=== PATIENT | female | born 1985 | race Caucasian/White ===

== ENCOUNTER → 2022-02-07 | Outpatient (CLI) | payer BC, SELFPAY ==
[2022-02-10 20:10] LABS: HPV APTIMA, High Risk Negative (Negative)
== END | disposition home or self-care (01) ==
LOC: LABSPEC 16:23
PROVIDERS: Visit Provider Obstetrics & Gynecology
DX: Z12.4 Encounter for screening for malignant neoplasm of cervix (principal)
CPT/HCPCS: 87624; 88175; G0145

== ENCOUNTER 2022-03-02 14:28 | Outpatient (CLI) | payer BC, SELFPAY ==
--- NOTE | 2022-03-02 | LES_PTH ---
PATIENT: NANETTE DELUNA LOC: [facility] U#:[id number] AGE/SX: 36/F ROOM: RE03/02/[address]: Dr. Suman Allison MD : 1985 BED: DIS: 03/02/2022 SPEC #: [id number] RECD: 03/02/22 15:57 STATUS: MACK ALMODOVARChely #: [id number] RUTH ANN: 03/02/22 00:[address]: Suman Allison DEPT: SURGICAL PATHOLOGY RECD BY: Daryn Garnica Tissues: Skin appendage, NOS Procedures: Surgery Specimen Level III HEADER OPERATION: Skin tag removal PRE-OP DIAGNOSIS: 078.11 TISSUE SUBMITTED: Skin tag MICROSCOPIC DIAGNOSIS Skin tag, biopsy: Benign fibroepithelial polyp. AM:kirby 03/06/2022 MICROSCOPIC DESCRIPTION Slides are reviewed. GROSS DESCRIPTION Received in fixative is one container labeled with the patient's name and designated skin tag. The specimen consists of a polypoid piece of dangelo-white skin measuring 0.5 x 0.5 x 0.3 cm. The specimen is bisected and submitted entirely in one cassette. / SJ:rg 03/03/2022 TC:1 CPT: 09324
== END 2022-03-02 23:59 | disposition home or self-care (01) ==
LOC: LABSPEC 14:29
PROVIDERS: Visit Provider Obstetrics & Gynecology
DX: L91.8 Other hypertrophic disorders of the skin (principal)
CPT/HCPCS: 88304; 88305

== ENCOUNTER → 2023-02-23 | Outpatient (CLI) | payer OTHER, SELFPAY ==
[2023-02-23 15:42] LABS: Absolute Lymphocyte Count 4.23 X10^3/uL (0.83-4.51); Absolute Neutrophil Count 6.9 X10^3/uL (2.0-7.7); Basophil# 0.07 X10^3/uL; Basophil% 0.6 % (0-1); Eosinophil# 0.63 X10^3/uL; Eosinophils% 5.1 % (0-5); Hematocrit 27.4 % (37-47); Hemoglobin 9.1 g/dL (12.0-15.0); Lymphocyte # 4.23 X10^3/ul (0.83-4.51); Mean Corp Hgb Conc 33.2 g/dL (32-36); Mean Corpuscular Hgb 33.2 pg (27.0-32.0); Mean Platelet Vol. 10.7 fl (6.2-12.0); Monocyte# 0.59 X10^3/uL; Monocyte% 4.7 % (0-10); NRBC Flagged by Analyzer 0 % (0-5); Neutrophil # 6.86 X10^3/uL (2.7-7.7); Neutrophil % 55.1 % (47-70); Platelet Count 299 K/mm3 (150-450); RBC Distribution Width CV 13.1 % (11.6-14.6); RBC Distribution Width SD 47.6 fl (35.1-43.9); Red Blood Count 2.74 M/mm3 (4.2-5.4); White Blood Count 12.4 K/mm3 (4.4-11.0)
[2023-02-23 16:06] LABS: Hemoglobin A1c 7.7 % (3.8-5.6)
[2023-02-23 16:09] LABS: hCG Titer Quant., Serum < 1 mIU/mL (1-3)
[2023-02-23 16:10] LABS: Estradiol 27.2 pg/mL; Prolactin 23.3 ng/mL; T4 Free Direct 1.05 ng/dL (0.76-1.46); Thyroid Stim Hormone (TSH) 1.43 uIU/mL (0.358-3.74)
== END | disposition home or self-care (01) ==
LOC: WOBLAB 14:51
PROVIDERS: Visit Provider Nurse Practitioner Women's Health
DX: N93.9 Abnormal uterine and vaginal bleeding, unspecified (principal)
CPT/HCPCS: 36415; 82670; 83001; 83002; 83036; 84146; 84439; 84443; 84702; 85025

== ENCOUNTER → 2023-03-07 | Outpatient (CLI) | payer OTHER, SELFPAY ==
--- NOTE | 2023-03-07 | EMB_PTH ---
PATIENT: NANETTE DELUNA LOC: [facility] U#:[id number] AGE/SX: 37/F ROOM: RE03/07/[address]: Dr. Leta Allison, : 1985 BED: DIS: 03/07/2023 SPEC #: [id number] RECD: 03/07/23 16:39 STATUS: MACK ESVIN #: [id number] RUTH ANN: 03/07/23 00:[address]: Leta Allison DEPT: SURGICAL PATHOLOGY RECD BY: Daryn Garnica Tissues: Endometrium, NOS Procedures: Surgery Specimen Level IV HEADER OPERATION: Endometrial biopsy PRE-OP DIAGNOSIS: N93.9 TISSUE SUBMITTED: Endometrial biopsy MICROSCOPIC DIAGNOSIS Endometrial biopsy: Secretory endometrium. JANICE:kirby 03/09/2023 MICROSCOPIC DESCRIPTION Slides are reviewed. GROSS DESCRIPTION Received in fixative is one container labeled with the patient's name and designated endometrial biopsy. The specimen consists of multiple irregular fragments of dangelo-pink soft tissue that in aggregate measure 2.0 x 0.5 x 0.1 cm. The specimen is totally submitted in one cassette. / SJ:rg 03/08/2023 TC:4 CPT: 94468
== END | disposition home or self-care (01) ==
LOC: LABSPEC 16:28
PROVIDERS: Visit Provider Student in an Organized Health Care Education/Training Program
DX: N93.9 Abnormal uterine and vaginal bleeding, unspecified (principal)
CPT/HCPCS: 88305

== ENCOUNTER 2023-04-12 07:09 | Day surgery (SDC) | payer OTHER, SELFPAY ==
[2023-04-04 17:07] LABS: Hematocrit 35.5 % (37-47); Hemoglobin 11.1 g/dL (12.0-15.0); Mean Corp Hgb Conc 31.3 g/dL (32-36); Mean Corpuscular Hgb 29.8 pg (27.0-32.0); Mean Corpuscular Volume 95.2 fL (81-99); Mean Platelet Vol. 10.4 fl (6.2-12.0); Platelet Count 470 K/mm3 (150-450); RBC Distribution Width SD 49.3 fl (35.1-43.9); Red Blood Count 3.73 M/mm3 (4.2-5.4); White Blood Count 12.8 K/mm3 (4.4-11.0)
[2023-04-04 17:25] LABS: Hemoglobin A1c 6.7 % (3.8-5.6)
[2023-04-04 17:30] LABS: ALB/GLOB Ratio 1.1 RATIO (0.9-2.4); AST(SGOT) 25 U/L (15-37); Alanine Aminotransfer ALT/SGPT 62 U/L (13-56); Albumin, Serum 3.9 g/dL (3.2-5.0); Alkaline Phosphatase 44 U/L (45-117); Anion Gap 5 (5-15); BUN 12 mg/dL (7-18); BUN/Creat Ratio 14.3 RATIO (10-20); Calcium,Total 9.2 mg/dL (8.5-10.1); Chloride 108 mmol/L (98-107); Creatinine, Serum 0.84 mg/dL (0.55-1.02); EST Glomerular Filtration Rate 80 mL/min (>60); Est Glom Filt Rate - Afr Amer 97 mL/min (>60); Globulin 3.7 g/dL (2.2-4.2); Glucose 106 mg/dL (74-106); Potassium 3.8 mmol/L (3.5-5.1); Protein, Total 7.6 g/dL (6.4-8.2); Sodium Level 137 mmol/L (136-145)
--- NOTE | 2023-04-09 07:02 | EKG12_ITS ---
Test Reason : PRE OP Blood Pressure : / mmHG Vent. Rate : 069 BPM Atrial Rate : 069 BPM P-R Int : 132 ms QRS Dur : 100 ms QT Int : 386 ms P-R-T Axes : 007 -02 104 degrees QTc Int : 413 ms Normal sinus rhythm with sinus arrhythmia Abnormal QRS-T angle, consider primary T wave abnormality Abnormal ECG No previous ECGs available Confirmed by AUDREY CASTORENA, COLLEEN ([id number]), index editor STACY MANN ([id number]) on 04/09/2023 1:26:07 PM Referred By: Leta Allison Confirmed By:COLLEEN VENTURA MD
[2023-04-12] VITALS (7 sets, daily range): BP systolic 123–154; BP diastolic 70–99; PULSE 57–75; RESP 18; TEMP 36.7–36.8; O2SAT 94–100; BMI 20.7
--- NOTE | 2023-04-12 07:17 | HP.PCM.OB_ITS ---
History and Physical Date of Admission: 04/12/23 HPI: 37-year-old female with abnormal uterine bleeding plan for hysteroscopy, dilation curettage, endometrial ablation. Denies headache or vision changes, chest pain or shortness of breath, nausea or vomiting, diarrhea constipation, fevers or chills. MARINE PIPEFITTER history: Medical history: 1. Obesity 2. Hypertension 3. Hyperlipidemia 4. Diabetes mellitus type 2 5. Hemochromatosis Surgical history: 1. Tonsillectomy and adenoidectomy 2. Labial skin tag removal Medications: 1. Amlodipine 2. Atorvastatin 3. Biotin 4. Buspirone 5. Carvedilol 6. Clonidine 7. Hydrochlorothiazide 8. Iron 9. Lisinopril 10. Metformin 11. Vitamin D 12. Norethindrone Allergies: Penicillin and sulfa Social history: Denies alcohol, drug use. Reports tobacco use Family history: Noncontributory Review of system: Negative otherwise stated above Physical exam Vitals: pending General: No acute distress HEENT: Normocephalic/atraumatic, PERRLA Cardiac: Regular rate and rhythm Respiratory: Clear to auscultation bilaterally Abdomen: Soft, nontender extremities: No edema Musculoskeletal: Moves all extremities equally Neurologic: Cranial nerves II through XII grossly intact, no focal deficits Assessment/plan: 37-year-old female with abnormal uterine bleeding plan for hysteroscopy, dilation curettage, endometrial ablation. All risk, benefits, alternatives were discussed with the patient. Risk include but not limited to: Risk of bleeding to the point transfusion, infection, injury to surrounding tissue including bowel/bladder/uterine perforation, VTE, ICU admission. Patient aware and consented. Elects for OCP for prevention post ablation.
[2023-04-12 07:40] LABS: Internal QC Validated? YES +Cl - CLEAR BKGD; Pregnancy, Urine Negative Negative
[2023-04-12] MEDS: Lactated Ringers 1,000 ML 15 ML IV (07:48)
--- NOTE | 2023-04-12 08:34 | OP.PCM_ITS ---
Report of Operation Date of Procedure: 04/12/23 Pre-Operative Diagnosis: Abnormal uterine bleeding Post-Operative Diagnosis: Abnormal uterine bleeding Surgery/Procedure Performed:: Hysteroscopy, dilation curettage, endometrial ablation Description of Surgical Findings:: Normal-appearing external genitalia. Normal-appearing cervix. No uterine descensus. Thickened endometrial lining. Surgeon: Leta Allison resource specialist teacher: None Type of Anesthesia: MAC Specimen's removed: Endometrial curettings Estimated Blood Loss (mL): 5 cc Fluids Replaced: 700cc Description of Procedure: Indication/risk/benefits\; 37-year-old female with abnormal uterine bleeding plan for hysteroscopy, dilation curettage, endometrial ablation. All risk, benefits, alternatives were discussed with the patient. Risk include but not limited to: Risk of bleeding to the point transfusion, infection, injury to surrounding tissue including bowel/bladder/uterine perforation, VTE, ICU admission. Patient aware and consented. Elects for OCP for prevention post ablation. Procedure: Patient taken to the operating room placed under MAC anesthesia. Patient placed in dorsal lithotomy position prepped and draped in the usual sterile fashion. Weighted speculum placed in posterior vagina and Crowder retractor used to visualize the cervix. Anterior lip of the cervix grasped with Allis clamp. Cervix sequentially dilated. Hysteroscope placed through the cervical canal and inspection of the endometrial cavity noted findings above. Hysteroscope removed. Endometrial curettings completed in 360 degree manner. Endometrial cavity length measured 5 cm. Isela device open. Isela device placed and passed cavity assessments. Deployed. Ablation completed and Isela device removed. Allis clamp removed and week speculum removed. Cervix hemostatic. At the end of the procedure all needle, lap, sponge counts were correct. Urine output: Not measured Complications None Admit VTE Documentation VTE Mechan Device Prophylaxis: SCD's
--- NOTE | 2023-04-12 08:39 | DCINST_ITS ---
Discharge Instructions Diet Discharge Diet: No restrictions Activity Discharge Activity: Return to Normal Activity and May Shower May resume sexual activity in: 2 weeks Weight Bearing Status: Weight bearing as tolerated Lifting Restrictions: None Dressing / Incision Call your doctor if you observe: Fever of 101 or Higher, Change in Color, Inability to urinate, Using more than 1 pad per hour, Shortness of breath, Dizziness, Swelling in the ankles, Chest pain and Calf discomfort Follow Up Care Please Follow Up With: Leta Allison DO When: 1-2 week postoperative visit Test Results: Test results from this visit will be discussed in further detail at your follow- up appointment, if applicable. Discharge Plan Admission Primary Reason for Your Visit: Ablation Attending Provider: Leta Allison Primary Care Provider: Britton Ibanez Discharge Orders/Prescriptions Prescriptions: Continued amlodipine 10 mg tablet 10 mg PO DAILY atorvastatin 20 mg tablet 20 mg PO DAILY buspirone 5 mg tablet 5 mg PO BID carvedilol 12.5 mg tablet 12.5 mg PO BID clonidine HCl 0.1 mg tablet 0.1 mg PO BID hydrochlorothiazide 12.5 mg tablet 12.5 mg PO DAILY lisinopril 20 mg tablet 20 mg PO DAILY metformin 500 mg tablet extended release 24 hr 500 mg PO DAILY norethindrone acetate 5 mg tablet 5 mg PO BID ferrous sulfate [Iron (ferrous sulfate)] 325 mg (65 mg iron) tablet 325 mg PO DAILY Referrals / Follow Up: Britton Ibanez MD [Primary Care Provider] - Disposition Disposition (needs filled in before D/C Order can be placed): Home, Self Care
--- NOTE | 2023-04-12 08:45 | EMB_PTH ---
PATIENT: NANETTE DELUNA LOC: [facility] [place] U#:[id number] AGE/SX: 37/F ROOM: RE04/12/[address]: Dr. Leta Allison DO : 1985 BED: DIS: 04/12/2023 SPEC #: [id number] RECD: 04/12/23 12:55 STATUS: MACK ESVIN #: [id number] RUTH ANN: 04/12/23 08:[address]: Leta Allison DEPT: SURGICAL PATHOLOGY RECD BY: Maty Valdez ENTERED: 04/12/23 13:36 SP TYPE: ENDOM BX/C NAZARIO DR: Dr. Britton Ibanez MD Tissues: Endometrium, NOS Procedures: Surgery Specimen Level IV HEADER OPERATION: Hysteroscopy, D & C Isela PRE-OP DIAGNOSIS: Abnormal uterine bleeding TISSUE SUBMITTED: Endometrial curettings MICROSCOPIC DIAGNOSIS Endometrial curettings: Consistent with exogenous hormone effects with glandular and stromal breakdown. Mild chronic endometritis. See comment. SJ:kirby 04/13/2023 COMMENT Clinical correlation and appropriate follow up are necessary. Case has been reviewed in consultation with Dr. Carpio who concurs with the above diagnosis. IDC:AM MICROSCOPIC DESCRIPTION Slides are reviewed. GROSS DESCRIPTION Received in fixative is one container labeled with the patient's name and designated endometrial curettings. The specimen consists of multiple fragments of hemorrhagic soft tissue that in aggregate measure 2.5 x 2.0 x 0.2 cm. The specimen is totally submitted in one cassette. / JANICE:kirby 04/12/2023 TC:5 CPT: 65443
[2023-04-12] MEDS: Ketorolac 15 MG/ML Vial IV (08:53)
[2023-04-12 23:55] LABS: Bedside Glucose 135 mg/dL (74-106)
== END 2023-04-12 09:37 | disposition home or self-care (01) ==
LOC: SDC 07:11 → AC 07:12
PROVIDERS: Anesthesiology; PCP Internal Medicine; Referring Provider Student in an Organized Health Care Education/Training Program; Visit Provider Student in an Organized Health Care Education/Training Program
PROC: 0U5B8ZZ Destruction of Endometrium, Via Natural or Artificial Opening Endoscopic (ICD-10-PCS; CPT 58558; principal; 2023-04-12 08:30)
DX: N71.1 Chronic inflammatory disease of uterus (principal); E11.9 Type 2 diabetes mellitus without complications; N93.9 Abnormal uterine and vaginal bleeding, unspecified; I10 Essential (primary) hypertension; E78.00 Pure hypercholesterolemia, unspecified; E61.1 Iron deficiency; F41.9 Anxiety disorder, unspecified; F17.200 Nicotine dependence, unspecified, uncomplicated; Z79.84 Long term (current) use of oral hypoglycemic drugs; Z79.899 Other long term (current) drug therapy
CPT/HCPCS: 58563; 00952; 36415; 80053; 81025; 82962; 83036; 85027; 86850; 86900; 86901; 88305; 93005; J7120; J2405